=== PATIENT | male | born 1980 | race Caucasian/White ===

== ENCOUNTER 2021-01-19 16:53 | Outpatient (REF) | payer SELFPAY ==
[2021-01-19 19:37] LABS: Calculated LDL 141 mg/dL (<100); Cholesterol 212 mg/dL (<200); HDL Cholesterol 45 mg/dL (40-60); Triglyceride 131 mg/dL (<150)
== END 2021-01-19 16:54 | disposition home or self-care (01) ==
LOC: NCHCN 16:53
PROVIDERS: PCP Internal Medicine; Visit Provider Internal Medicine
DX: Z00.00 Encounter for general adult medical examination without abnormal findings (principal)
CPT/HCPCS: 80061